=== PATIENT | female | born 1980 | race Caucasian/White ===

== ENCOUNTER 2016-04-07 18:27 | Emergency (ER) | payer OTHER ==
[2016-04-07 18:50] VITALS: BP 104/78; PULSE 70; RESP 18; TEMP 97.7; O2SAT 98
--- NOTE | 2016-04-07 19:38 | UCPHY ---
H & P Patient Type: Established HPI/ROS: CHIEF COMPLAINT: right shoulder pain HISTORY OF PRESENT ILLNESS: is 35-year-old female who reports about a week ago pulling a very awkward [place] TV 4 room to another as a drug along the floor. Actually at the time there was not any particular sensation of discomfort. However the next day she started noticing pain overlying the anterior aspect of the upper portion of the right shoulder. She has had no prior injury to this although did break her arm when a child. Since that time she has been taking for ibuprofen daily with no improvement. As of yesterday the symptoms were somewhat worse so she actually made a make shift sling out of a scarf. She was having her wrist hang from that sling no nonetheless She is emphatic there is no blunt trauma to the area. She has had no prior shoulder problems. P worse with movement in particular abduction Q achiness R anterior portion of the shoulder S mild at rest worse with movement to the moderate T onset some 7 days ago progressively worse REVIEW OF SYSTEMS: Musculoskeletal: see above Extremity: No edema. No unilateral swelling. No joint swelling. Neuorlogical: No numbness or weakness. No loss of sensation. Smoking Status: Former smoker Physical Exam: General Appearance: Alert, no distress. Afebrile. Extremities: She has discretely tender over the anterior portion of the right shoulder is along the area expanding both of disappear groove and somewhat lateral 0 over the tubercle of the humerus. There is no discrete spot that would be amenable to steroid injection. She has mild discomfort with AB duction on a active range but not passively. She does not have a positive drop test. No crepitus Neurological: NV intact. Skin: Skin is intact. Warm and dry, no rashes. no lymphangitis. . Constitutional: Initial Vital Signs Temperature (C) 36.5 C 04/07/16 18:46 Heart Rate 70 04/07/16 18:46 Respiratory Rate 18 04/07/16 18:46 Blood Pressure 104/78 04/07/16 18:46 O2 Sat (%) 98 04/07/16 18:46 O2 Delivery Mode Room Air Allergies/Adverse Reactions: amphetamine aspartate [From Adderall] Allergy (Verified 04/07/16 18:43) amphetamine sulfate [From Adderall] Allergy (Verified 04/07/16 18:43) dextroamphetamine [From Adderall] Allergy (Verified 04/07/16 18:43) lamotrigine [From Lamictal] Allergy (Verified 04/07/16 18:43) latex Allergy (Verified 04/07/16 18:43) risperidone [From Risperdal] Allergy (Verified 04/07/16 18:43) ANIMALS Allergy (Uncoded 04/07/16 18:43) Home Medications: Medication Instructions Recorded valACYclovir [Valtrex (RX)] 02/16/14 Albuterol Hfa Anes Only [Proair 04/25/14 Hfa Icu (*)] Gabapentin [Neurontin 300 MG (*)] 04/25/14 Lido Patch 04/25/14 predniSONE 04/25/14 Budesonide 180 Mcg INH [Pulmicort 1 puffs IH BID #1 mdi 04/26/14 180Mcg Flexhaler] Hydroxyzine HCl 04/07/16 KLONOPIN 04/07/16 Seroquel 04/07/16 Singulair 04/07/16 Synthroid 04/07/16 Topamax 04/07/16 Medical Decision Making ED Course/Re-evaluation: [place] Prescription Drug Monitoring Program checked: Multiple prescriptions for lorazepam which she readily admits to being on as seen in the triage note however no narcotics or other scheduled agents Differential Diagnosis: The differential diagnosis includes but is not limited to: Fracture, Sprain, Strain, Dislocation, Nerve injury, tendinitis Departure - Departure Disposition: Home, Routine, Self-Care Clinical Impression: Tendonitis of shoulder, right Condition: Good Instructions: Tenosynovitis (ED) Additional Instructions: Wear the sling until your pain free. Watch her pain-free gradually resume her physical fitness activity for the next 3 weeks Use [id number] ibuprofen 600 mg 3 times daily for the next 5-10 days. Take this with food. He may take Tylenol with the ibuprofen No driving while wearing her sling Follow up with her family doctor in 10 days if not all better for consideration of physical therapy Referrals: Brittani Hernandez MD [Primary Care Provider] - As per Instructions - PQRS PQRS Measurement: Not applicable
== END 2016-04-07 20:16 | disposition home or self-care (01) ==
LOC: CED 18:27
DX: M75.81 Other shoulder lesions, right shoulder (principal); X50.0XXA Overexertion from strenuous movement or load, initial encounter; Y92.019 Unspecified place in single-family (private) house as the place of occurrence of the external cause; Y93.E6 Activity, residential relocation
CPT/HCPCS: 99214-PO; G0463-PO